=== PATIENT | male | born 1940 | race Two or more races ===

== ENCOUNTER 2024-04-09 13:04 | Emergency (ER) | payer OTHER, MEDICAID ==
[~2024-04-09] VITALS: Ht 167.6 cm; Wt 54.7 kg
[2024-04-09] MEDS: ALBUTEROL SULF 2.5 MG/0.5ML(0.5%) NEB SOLN NEB ONE (13:31)
[2024-04-09] MEDS: IPRATROPIUM BROM 0.5 MG/2.5ML INH SOL NEB ONE (13:32)
[2024-04-09 14:00] LABS: Basophils # (auto) 0 10 ^3/uL (0-0.2); Basophils % (auto) 0.8 % (0.0-2.0); Eosinophils # (auto) 0.6 10 ^3/uL (0-0.8); Eosinophils % (auto) 9.2 % (0.0-7.0); Hematocrit 42.7 % (41.0-53.0); Hemoglobin 14.3 g/dL (13.5-17.5); Lymphocytes # (auto) 2.9 10 ^3/uL (0.4-5.4); Lymphocytes % (auto) 46.9 % (10.0-50.0); Mean Corpuscular Hemoglobin 30.1 pg (28.0-32.0); Mean Corpuscular Hgb Conc. 33.4 g/dL (32.0-36.0); Mean Corpuscular Volume 90.1 fL (80.0-100.0); Monocytes # (auto) 0.6 10 ^3/uL (0-1.3); Monocytes % (auto) 9.5 % (0.0-12.0); Neutrophils # (auto) 2.1 10 ^3/uL (1.6-8.6); Neutrophils % (auto) 33.6 % (37.0-80.0); Red Blood Cells 4.74 10^6/uL (4.5-5.90); Red Cell Distribution Width 14.9 % (11.8-14.3); White Blood Cell 6.3 10^3/uL (4.4-10.8)
[2024-04-09] MEDS ORDERED: ALBU108A5 IN (14:11)
[2024-04-09 14:14] VITALS: PULSE 74; RESP 20; O2SAT 93
[2024-04-09 14:21] LABS: Alanine Aminotransferase 61 U/L (7-40); Albumin 4.1 g/dL (3.2-4.8); Alkaline Phosphatase 882 U/L (46-116); Anion Gap 7 (5-15); Aspartate Aminotransferase 102 U/L (13-40); BUN/Creatinine Ratio 20.9 (10.0-20.0); Bilirubin, Total 0.6 mg/dL (0.2-1.0); Blood Urea Nitrogen 18 mg/dL (9-23); Calcium 9.6 mg/dL (8.7-10.4); Carbon Dioxide 27 mmol/L (20-30); Chloride 103 mmol/L (98-107); Glucose 83 mg/dL (74-106); Potassium 4.1 mmol/L (3.5-5.1); Sodium 137 mmol/L (136-145)
[2024-04-09 15:53] VITALS: TEMP 98.4
[2024-04-09 19:00] VITALS: BP 109/61; PULSE 74; RESP 20; O2SAT 95
== END 2024-04-09 20:12 | disposition left against medical advice (07) ==
LOC: ER 13:04
DX: R06.02 Shortness of breath (principal); R07.89 Other chest pain; I10 Essential (primary) hypertension; E78.5 Hyperlipidemia, unspecified; E11.9 Type 2 diabetes mellitus without complications; Z98.890 Other specified postprocedural states; Z87.891 Personal history of nicotine dependence; Z79.899 Other long term (current) drug therapy
CPT/HCPCS: 36415; 71045; 80053; 83880; 84484; 85025; 93005; 94640; 99285; J7644

== ENCOUNTER 2025-10-02 11:47 | Inpatient (IN) | payer OTHER, MEDICAID ==
[~2025-10-02] VITALS: Ht 157.5 cm; Wt 63.2 kg
[~2025-10-02 11:47] MED LIST: ALBU108A5 IN
--- NOTE | 2025-10-02 12:41 | ED.PDOC ---
SOB-HPI HPI Comments 84 y.o male presents to the ED for a chief complaint of SOB that started 3 days ago. Patient reports SOB worsens when laying flat and has no alleviating factors. He presents today concerned d/t hx of CABG with PTCA x 3 one year ago. He is living with daughter at the moment who is taking care of him s/p procedure. He denies any chest pain, fever, chills, nausea, vomiting, diarrhea, recent illness exposure. Chief Complaint: Shortness of Breath Time Seen by MD: 12:19 Primary Care Provider: BHARGAV Reviewed notes: Nurses Notes, Medications, Allergies Information Source: Patient Mode of Arrival: Ambulatory Severity: Moderate Timing: Days (3) Duration: Since onset Context: At Rest History of: Other Modifying Factors: Nothing; Laying flat Associated Signs and Symptoms: None Past Medical History PAST MEDICAL HISTORY: DM, High Lipids, HTN Surgical History: CABG Family History Family History: Reviewed,noncontributory to illness, Unknown Social History Smoker: Non-Smoker, Quit Greater Than 1 Year Alcohol: Occasionally Drugs: Denies Drug Use Lives In: Home Constitutional: denies: chills, diaphoresis, fatigue, fever, malaise, sweats, weakness, others EENTM: denies: blurred vision, double vision, ear bleeding, ear discharge, ear drainage, ear pain, ear ringing, eye pain, eye redness, hearing loss, mouth pain, mouth swelling, nasal discharge, nose bleeding, nose congestion, nose pain, photophobia, tearing, throat pain, throat swelling, voice changes, others Respiratory: reports: SOB at rest, shortness of breath, SOB with excertion; denies: cough, hemoptysis, orthopnea, stridor, wheezing, others Cardiovascular: denies: chest pain, dizzy spells, diaphoresis, Dyspnea on exertion, edema, irregular heart beat, left arm pain, lightheadedness, palpitations, PND, syncope, others Gastrointestinal: denies: abdomen distended, abdominal pain, blood streaked bowels, constipated, diarrhea, dysphagia, difficulty swallowing, hematemesis, melena, nausea, poor appetite, poor fluid intake, rectal bleeding, rectal pain, vomiting, others Genitourinary: denies: burning, dysuria, flank pain, frequency, hematuria, incontinence, penile discharge, penile sore, pain, testicle pain, testicle swelling, urgency, others Neurological: denies: dizziness, fainting, headache, left sided numbness, left sided weakness, numbness, paresthesia, pre-existing deficit, right sided numbness, right sided weakness, seizure, speech problems, tingling, tremors, weakness, others Musculoskeletal: denies: back pain, gout, joint pain, joint swelling, muscle pain, muscle stiffness, neck pain, others Integumetry: denies: bruises, change in color, change in hair/nails, dryness, laceration, lesions, lumps, rash, wounds, others Allergic/Immunocompromised: denies: Difficulty Healing, Frequent Infections, Hives, Itching, others Hematologic/Lymphatic: denies: anemia, blood clots, easy bleeding, easy bruising, swollen glands, others Endocrine: denies: excessive hunger, excessive sweating, excessive thirst, excessive urination, flushing, intolerance to cold, intolerance to heat, unexplained weight gain, unexplained weight loss, others Psychiatric: denies: anxiety, bipolar disorder, depression, hopeless, panic disorder, schizophrenia, sleepless, suicidal, others All Other Systems: Reviewed and Negative Physical Exam General Appearance: Moderate Distress HEENT: Normal ENT Inspection, Pharynx Normal, TMs Normal Neck: Full Range of Motion, Non-Tender, Normal, Normal Inspection Respiratory: Chest Non-Tender, Lungs Clear, No Accessory Muscle Use, No Respiratory Distress, Normal Breath Sounds Cardiovascular: No Edema, No JVD, No Murmur, No Gallop, Normal Peripheral Pulses, Regular Rate/Rhythm Breast Exam: Deferred Gastrointestinal: No Organomegaly, Non Tender, No Pulsatile Mass, Normal Bowel Sounds, Soft Genitalia: Deferred Pelvic: Deferred Rectal: Deferred Extremities: No calf tenderness, Normal capillary refill, Normal inspection, Normal range of motion, Non-tender, No pedal edema Musculoskeletal : Apperance: Normal Neurologic: Alert, underwear cutter II-XII nml as Tested, No Motor Deficits, Normal Affect, Normal Mood, No Sensory Deficits Cerebellar Function: Normal Reflexes: Normal Skin: Dry, Normal Color, Warm Peripheral Pulses: 3+ Radial (R), 3+ Radial (L) Lymphatic: No Adenopathy EKG EKG : Pulse Rate (adult): 81 Cardiac Rhythm: NSR Was a procedure done? Was a procedure done?: No Differential Dx Differential Diagnosis: Anxiety, Asthma, Bronchitis, CHF, COPD, Pneumonia, Respiratory Distress, URI X-Ray, Labs, Meds, VS Vital Signs Date Time Temp Pulse Resp B/P (MAP) Pulse Ox O2 Delivery O2 Flow Rate FiO2 10/02/25 12:41 81 10/02/25 11:59 81 10/02/25 11:50 97.3 83 20 169/102 98 97.3 Lab Test 10/02/25 13:57 10/02/25 12:53 10/02/25 12:01 Range/Units Troponin I High Sensitivity Pending 17 </=54 ng/L White Blood Count 4.1 L 4.4-10.8 10^3/uL Red Blood Count 5.04 4.5-5.90 10^6/uL Hemoglobin 15.4 13.5-17.5 g/dL Hematocrit 46.3 41.0-53.0 % Mean Corpuscular Volume 91.9 80.0-100.0 fL Mean Corpuscular Hemoglobin 30.5 28.0-32.0 pg Mean Corpuscular Hemoglobin Concent 33.2 32.0-36.0 g/dL Red Cell Distribution Width 14.3 11.8-14.3 % Platelet Count 181 140-450 10^3/uL Mean Platelet Volume 8.0 6.9-10.8 fL Neutrophils (%) (Auto) 41.8 37.0-80.0 % Lymphocytes (%) (Auto) 43.2 10.0-50.0 % Monocytes (%) (Auto) 5.5 0.0-12.0 % Eosinophils (%) (Auto) 8.7 H 0.0-7.0 % Basophils (%) (Auto) 0.8 0.0-2.0 % Neutrophils # (Auto) 1.7 1.6-8.6 10 ^3/uL Lymphocytes # (Auto) 1.8 0.4-5.4 10 ^3/uL Monocytes # (Auto) 0.2 0-1.3 10 ^3/uL Eosinophils # (Auto) 0.4 0-0.8 10 ^3/uL Basophils # (Auto) 0 0-0.2 10 ^3/uL Nucleated Red Blood Cells 0.8 % Sodium Level 140 136-145 mmol/L Potassium Level 4.4 3.5-5.1 mmol/L Chloride Level 103 98-107 mmol/L Carbon Dioxide Level 29 20-31 mmol/L Anion Gap 8 5-15 Blood Urea Nitrogen 11 9-23 mg/dL Creatinine 1.01 0.700-1.30 mg/dL Glomerular Filtration Rate Calc 74 >90 mL/min BUN/Creatinine Ratio 10.9 10.0-20.0 Serum Glucose 198 H 74-106 mg/dL Calcium Level 9.0 8.7-10.4 mg/dL B-Type Natriuretic Peptide 712.59 0-100 pg/mL POC Glucose 148 H 70-106 mg/dl Patient alert. Complaining of abdominal pain. Vitals stable. Answering questions. History of coronary artery disease. WBC slightly low. Hemoglobin within normal limits. Blood pressure elevated. Was given clonidine. BNP elevated. Was given Lasix. Continue monitoring. Time of 1ST Reevaluation: 12:37 Reevaluation 1ST: Unchanged Patient Education/Counseling: Diagnosis, Treatment, Prognosis Family Education/Counseling: No Family Present SEPSIS Sepsis Screen Date sepsis recognized/suspect: Oct 02, 2025 Time Sepsis recognized/suspect: 1152 Recent Procedure: No On Antibiotic Therapy: No Respiratory Rate >20: No Heart Rate >90: No Temp<36 C (96.8 F) or >38.3 C: No SBP <90 or MAP <65 mmHG: No New Acute Mental Status Change: No Is the patient on CPAP, BIPAP,: No Physician Orders Electrocardigram (10/02/25 12:05) Chest Portable (10/02/25 12:30) Urinalysis (10/02/25 12:30) Troponin-I Hs (10/02/25 13:30) Troponin-I Hs (10/02/25 15:30) Ct Ab Pel Wo Con-No Oral Or Iv (10/02/25 13:23) Vital Signs Date Time Temp Pulse Resp B/P (MAP) Pulse Ox O2 Delivery O2 Flow Rate FiO2 10/02/25 12:41 81 10/02/25 11:59 81 10/02/25 11:50 97.3 83 20 169/102 98 97.3 Laboratory Tests Test 10/02/25 12:53 White Blood Count 4.1 10^3/uL (4.4-10.8) L Departure 1 Departure Time of Disposition: 13:22 Impression: Primary Impression: Congestive heart failure Qualified Codes: I50.43 - Acute on chronic combined systolic (congestive) and diastolic (congestive) heart failure Additional Impressions: Hypertensive urgency Uncontrolled diabetes mellitus Qualified Codes: E13.65 - Other specified diabetes mellitus with hyperglycemia Disposition: ADMITTED INPATIENT Admit to: Med Surg Condition: Guarded Critical Care Note Critical Care Time?: Yes (90 min-critical care time only) Stability Stability form required: No I personally scribed for JARROD HUSSEIN MD ([email or web address]) on 10/02/25 at 12:41. Electronically submitted by Latrice Trevino ([facility]). JARROD HUSSEIN MD Oct 02, 2025 12:41
--- NOTE | 2025-10-02 13:11 | DVH ---
CHEST RADIOGRAPH INDICATION: sob TECHNIQUE: Single frontal view of the chest was obtained COMPARISON: XY CHEST PORTABLE on DOS: 04/09/24 FINDINGS: Lines and Tubes: None Lungs: No focal consolidation. Pleura: No effusion. No pneumothorax. Cardiomediastinal contours: Heart size is within normal limits with [id number] atherosclerotic calcification and uncoiling of the aorta. Midline sternotomy wires surgical clips are noted . Bones: No acute osseous abnormality. IMPRESSION: No acute cardiopulmonary disease.
[2025-10-02 13:16] LABS: Hematocrit 46.3 % (41.0-53.0); Hemoglobin 15.4 g/dL (13.5-17.5); Mean Corpuscular Hemoglobin 30.5 pg (28.0-32.0); Mean Corpuscular Volume 91.9 fL (80.0-100.0); Nucleated Red Blood Cells % 0.8 %
[2025-10-02 13:21] LABS: Chloride 103 mmol/L (98-107); Potassium 4.4 mmol/L (3.5-5.1); Sodium 140 mmol/L (136-145)
[2025-10-02 13:22] LABS: Anion Gap 8 (5-15); Calcium 9.0 mg/dL (8.7-10.4); Carbon Dioxide 29 mmol/L (20-31)
[2025-10-02 13:27] LABS: BUN/Creatinine Ratio 10.9 (10.0-20.0); Blood Urea Nitrogen 11 mg/dL (9-23)
[2025-10-02 13:34] LABS: Glucose 198 mg/dL (74-106)
[2025-10-02] MEDS: FUROSEMIDE 40 MG/4 ML VIAL IV ONE (15:04)
[2025-10-02 15:06] LABS: Urine Protein, UAD 1+ (Negative)
--- NOTE | 2025-10-02 15:30 | DVH ---
CLINICAL HISTORY: colitis TECHNIQUE: CT of the abdomen and pelvis was performed without intravenous contrast. This exam was performed according to our departmental dose optimization program. Up-to-date CT equipment and radiation dose reduction techniques are utilized as appropriate. CTDI: 5.43 DLP: 293.88 WID: COMPARISON: None FINDINGS: Lower Thorax: Linear bibasilar scarring or atelectasis. Small cluster of ground- glass opacities in the right middle lobe on series 3 image 2. Partially imaged median sternotomy wires. Upper limits of normal-sized heart. Partially imaged pacer wires and [place] coronary artery calcifications. Partially imaged mild aortic valve calcification. Moderate calcified plaque in the visualized descending thoracic aorta. Liver and Biliary system: Normal-sized liver. There is a tiny hypodensity in segment 7/8 of the liver on series 2, image 14 not optimally evaluated without contrast. Gallbladder is normal caliber. There is no biliary ductal dilatation. Spleen: Unremarkable. Adrenal Glands and Kidneys: Normal adrenal glands. There is nonspecific bilateral perinephric stranding. There are multiple hypodense exophytic lesions in both kidneys not optimally evaluated without contrast measuring up to 3.6 cm in the right upper pole on series 2, image 23 and 3.9 cm in the left lower pole on series 2, image 38. There is focal scarring in the interpolar region of the right kidney. There is no hydronephrosis or nephrolithiasis. Bilateral renal hilar vascular calcifications. Pancreas and Retroperitoneum: Grossly unremarkable pancreas. No retroperitoneal lymphadenopathy. Aorta and Major Vessels: There is mild ectasia of the aortoiliac vessels containing Moderate to marked calcified plaque. Bowel, Mesentery and Peritoneal space: Normal caliber small and large bowel. Moderate retained stool in the colon. Normal appendix. There is no free intraperitoneal air or loculated fluid collection. Pelvis: There is calcification of the bilateral vas deferens seen in patients with diabetes. There is marked prostatomegaly. Urinary bladder is mildly distended with mild wall thickening. There is no pelvic lymphadenopathy. Abdominal wall and Osseous Structures: Small fat containing bilateral inguinal hernias. Bony demineralization. Grade 1 anterolisthesis L4-L5. Minor lower thoracic and lumbar spondylosis. Moderate degenerative narrowing of the bilateral hips. No destructive osseous lesion. IMPRESSION: 1. No bowel obstruction, fluid collection, or free air. Normal appendix. 2. Moderate retained stool in the colon suggesting constipation. 3. Mild bladder wall thickening which may be related to chronic bladder outlet obstruction in the setting of marked prostatomegaly. Correlate with urinalysis if there is clinical concern for cystitis. 4. Small cluster of ground-glass opacities in the right middle lobe which could be atypical infection. 5. Partially imaged mild aortic valve calcification. 6. Multiple bilateral renal hypodensities not optimally evaluated without contrast though may reflect cysts. This could be further evaluated with nonemergent / outpatient renal ultrasound if clinically indicated. 7. Moderate to marked calcified plaque in the mildly ectatic aortoiliac vessels.
[2025-10-02] MEDS: ASPirin-EC 81 mg tab PO ONE (16:47)
[2025-10-02] MEDS: FUROSEMIDE 40 MG/4 ML VIAL ONE (16:53)
--- NOTE | 2025-10-02 17:23 | DVHHPRES ---
History of Present Illness Resident Creating Document: HELEN CANO History of Present Illness Jordon Moreira is a 84-year-old male patient who presents to the ED with chief complaint of progressive dyspnea from Functional Class I to Functional Class III for the past four days associated with bilateral lower limb swelling. Patient reports recent CABG in February 2024, was given cardioprotective medication which he stopped taking approximately one month ago since he ran out (he is still takes spironolactone, Entresto and insulin). He currently lives with his daughter in [place] who is the caregiver, he does report a daughter does not assistance that much with his health. Patient also reports weak urinary stream for the past year, but he has not been evaluated by urologist. Denies any other associated symptoms including chest pain, palpitation, syncope and fever. Past medical history: Hypertension, dyslipidemia, diabetes insulin dependent, coronary artery disease status post CABG in February 2024, probable congestive heart failure (patient is taking GDM T for HFrEF, but patient denies any heart failure history), rib fractures previous to CABG. Surgical history: CABG 02/2024 Family history: Noncontributory Social history: Lives in [place] with daughter (next of kin). Denies current tobacco, alcohol and other drug abuse. Patient is a Spiritism, he denies any blood product administration. Allergies: Denies Home medication: Spironolactone 25 mg p.o. daily, Entresto one tablet p.o. b.i.d., amlodipine 5 mg p.o. daily, aspirin 81 mg p.o. daily, mononitrate isosorbide 30 mg p.o. daily, atorvastatin 40 mg p.o. daily, Patient seen and examined at bedside. Currently has no new complaints. Patient will be admitted for further evaluation. Past Medical History Per HPI Past Surgical History Per HPI Family History Per HPI Past Social History Per HPI Review of Systems Review of Systems Per HPI Allergies: Coded Allergies: No Known Drug Allergy (Verified Allergy, Unknown, 04/09/24) Exam Vital Signs Vital Signs Date Time Temp Pulse Resp B/P (MAP) Pulse Ox O2 Delivery O2 Flow Rate FiO2 10/02/25 15:04 156/95 10/02/25 14:54 97.9 73 16 98 97.9 Exam Patient lying in bed, in no acute distress General: Lucid, afebrile, mucosae are moist Cardiovascular: Normal S1 and S2. No murmurs, gallops or rubs Respiratory: Normal ventilation mechanics. Bibasilar crackles predominantly on right base, rest of lung auscultation is clear Abdomen: Soft, nontender, no organomegaly, normal bowel sounds MSK/skin: Mobilizes 4 limbs. Skin is dry and warm. Bilateral infrapatellar pitting edema, right greater than left. Neurological: Oriented in 3 spheres. No motor no sensitive deficits. Pupils are isocoric and reactive Labs/Xrays Labs Test 10/02/25 15:51 10/02/25 13:57 10/02/25 12:53 10/02/25 12:01 Range/Units Troponin I High Sensitivity 20 </=54 ng/L Urine Color Yellow Yellow Urine Clarity Clear Clear Urine pH 6.0 5.0-9.0 Urine Specific [place] 1.017 1.001-1.035 Urine Protein 1+ H Negative Urine Ketones Negative Negative Urine Blood Negative Negative /uL Urine Nitrite Negative Negative Urine Bilirubin Negative Negative Urine Urobilinogen 2 H Negative mg/dL Urine Leukocyte Esterase Negative Negative /uL Urine RBC 3 0 - 3 /hpf Urine Microscopic WBC 3 0-3 /HPF Urine Squamous Epithelial Cells Few <5 /hpf Urine Bacteria None seen None Seen /hpf Urine Glucose Trace Normal mg/dL White Blood Count 4.1 L 4.4-10.8 10^3/uL Red Blood Count 5.04 4.5-5.90 10^6/uL Hemoglobin 15.4 13.5-17.5 g/dL Hematocrit 46.3 41.0-53.0 % Mean Corpuscular Volume 91.9 80.0-100.0 fL Mean Corpuscular Hemoglobin 30.5 28.0-32.0 pg Mean Corpuscular Hemoglobin Concent 33.2 32.0-36.0 g/dL Red Cell Distribution Width 14.3 11.8-14.3 % Platelet Count 181 140-450 10^3/uL Mean Platelet Volume 8.0 6.9-10.8 fL Neutrophils (%) (Auto) 41.8 37.0-80.0 % Lymphocytes (%) (Auto) 43.2 10.0-50.0 % Monocytes (%) (Auto) 5.5 0.0-12.0 % Eosinophils (%) (Auto) 8.7 H 0.0-7.0 % Basophils (%) (Auto) 0.8 0.0-2.0 % Neutrophils # (Auto) 1.7 1.6-8.6 10 ^3/uL Lymphocytes # (Auto) 1.8 0.4-5.4 10 ^3/uL Monocytes # (Auto) 0.2 0-1.3 10 ^3/uL Eosinophils # (Auto) 0.4 0-0.8 10 ^3/uL Basophils # (Auto) 0 0-0.2 10 ^3/uL Nucleated Red Blood Cells 0.8 % Sodium Level 140 136-145 mmol/L Potassium Level 4.4 3.5-5.1 mmol/L Chloride Level 103 98-107 mmol/L Carbon Dioxide Level 29 20-31 mmol/L Anion Gap 8 5-15 Blood Urea Nitrogen 11 9-23 mg/dL Creatinine 1.01 0.700-1.30 mg/dL Glomerular Filtration Rate Calc 74 >90 mL/min BUN/Creatinine Ratio 10.9 10.0-20.0 Serum Glucose 198 H 74-106 mg/dL Calcium Level 9.0 8.7-10.4 mg/dL B-Type Natriuretic Peptide 712.59 0-100 pg/mL POC Glucose 148 H 70-106 mg/dl SEPSIS Sepsis Screen Date sepsis recognized/suspect: Oct 02, 2025 Time Sepsis recognized/suspect: 1152 Recent Procedure: No On Antibiotic Therapy: No Respiratory Rate >20: No Heart Rate >90: No Temp<36 C (96.8 F) or >38.3 C: No SBP <90 or MAP <65 mmHG: No New Acute Mental Status Change: No Is the patient on CPAP, BIPAP,: No Physician Orders Electrocardigram (10/02/25 12:05) Chest Portable (10/02/25 12:30) Ct Ab Pel Wo Con-No Oral Or Iv (10/02/25 13:23) Admit (10/02/25 17:16) Code Status (10/02/25 17:16) Acetaminophen Tablet (Tylenol Tablet) (10/02/25 17:30) Ondansetron Hcl (Zofran) (10/02/25 17:30) Complete Blood Count (10/03/25 04:00) Comprehensive Metabolic Panel (10/03/25 04:00) Cardiac Diet-2gna,Lofat,Lochol (10/02/25 Dinner) Echo 2d Mode Cardiac Dop (10/02/25 17:16) Morphine Sulfate Injection (10/02/25 17:30) Lovenox 40mg (10/03/25 10:00) Oxygen By Nasal Cannula (10/02/25 17:16) Stat Ekg For Chest Pain (10/02/25 17:16) Notify Md Of Changes From Base (10/02/25 17:16) Solids Control Technician For 24 Hours (10/02/25 17:16) Emergency Dysrhythmia Protocol (10/02/25 17:16) Rhythm Strips Once Every Shift (10/02/25 17:16) Vitamin D, 25-Hydroxy (10/02/25 17:16) Vitamin B12 (10/02/25 17:16) Thyroid Stimulating Hormone (10/02/25 17:16) Phosphorus (10/02/25 17:16) Magnesium (10/02/25 17:16) Lipid Panel (10/02/25 17:16) Lactic Acid W/ Reflex Order (10/02/25 17:16) Hemoglobin A1c (10/02/25 17:16) Drug Screen (10/02/25 17:16) PTPTT (10/02/25 17:16) Hepatic Panel (10/02/25 17:16) Covid19 Antigen Cecelia (10/02/25 ) Rapid Influenza A&B (10/02/25 17:16) Urine Bacterial Culture (10/02/25 17:16) Kidney (10/02/25 17:16) Ipratropium Medneb (Atrovent Medneb) (10/02/25 18:00) Levalbuterol Hcl (Xopenex Medneb) (10/02/25 18:00) Aspirin Enteric Coated Tablet (Ecotrin E (10/03/25 10:00) Aspirin Enteric Coated Tablet (Ecotrin E (10/02/25 17:30) Atorvastatin (Lipitor) (10/02/25 22:00) Furosemide Injection (Lasix Injection) (10/03/25 10:00) Vital Signs Date Time Temp Pulse Resp B/P (MAP) Pulse Ox O2 Delivery O2 Flow Rate FiO2 10/02/25 15:04 156/95 12/27/25 14:54 97.9 73 16 156/95 (115) 98 97.9 10/02/25 12:41 81 10/02/25 11:59 81 10/02/25 11:50 97.3 83 20 169/102 98 97.3 Laboratory Tests Test 10/02/25 12:53 White Blood Count 4.1 10^3/uL (4.4-10.8) L Medications Medications Dose Ordered Sig/Alex Route Start Time Stop Time Status Last Admin Dose Admin Furosemide 40 mg ONCE ONCE IV 10/02/25 14:30 10/02/25 14:31 DC 10/02/25 15:04 40 MG Assessment/Plan Assessment/Plan ASSESSMENT Acute respiratory failure Acute on chronic congestive heart failure (unknown LVEF, pending echocardiogram) Questionable atypical pneumonia Rule out DVT/PE Probable BPH Coronary artery disease status post CABG in 02/2024 Hypertension Dyslipidemia Diabetes insulin requiring, uncontrolled (hemoglobin A1c) History of rib fractures Mandaeism-refuses blood product administration Noncompliance PLAN Patient admitted to telemetry Currently on IV furosemide 40 mg daily. BNP above 7000. Will persists positive since patient is on Entresto. Ordered echocardiogram and EKG. Awaiting initiation of GDM T once obtaining echocardiogram. Completed abdomen and pelvis CT which showed no bowel obstruction, constipation, mild bladder wall thickening and prostatomegaly, probable atypical infection in the lung, aortic calcification, questionable renal cyst Ordered kidney ultrasound Initiated tamsulosin Ordered COVID and influenza swab due to questionable atypical pneumonia On insulin sliding scale. Have discussed importance of compliance to medication. Goals of care discussed with patient for over 18 minutes: Full code status. Patient refuses administration of blood products. Discussed plan with Dr. Harp, patient and nurses: Patient admitted to telemetry. Currently on IV diuretics, we will optimize GDM T once obtaining echocardiogram. Ordered swabs to rule out atypical pneumonia. Patient has poor prognosis. Plan discussed with: Patient, Other (Nurses) My Orders Orders - HELEN CANO RESIDENT Procedure Category Date Status Time Admit ADMIT 10/02/25 Transmitted 17:16 Code Status CODE 10/02/25 Transmitted 17:16 Acetaminophen Tablet PHA 10/02/25 Transmitted (Tylenol Tablet) 17:30 Ondansetron Hcl PHA 10/02/25 Transmitted (Zofran) 17:30 Complete Blood Count LAB 10/03/25 Verified 04:00 Comprehensive LAB 10/03/25 Verified Metabolic Panel 04:00 Cardiac DIET 10/02/25 Transmitted Diet-2gna,Lofat,Lochol Dinner Echo 2d Mode Cardiac US 10/02/25 Transmitted DOP 17:16 Morphine Sulfate PHA 10/02/25 Transmitted Injection 17:30 Lovenox 40mg PHA 10/03/25 Transmitted 10:00 Oxygen By Nasal RT 10/02/25 Transmitted Cannula 17:16 Stat Ekg For Chest [facility] 10/02/25 Transmitted Pain 17:16 Notify Of Changes [facility] 10/02/25 Transmitted From Base 17:16 Solids Control Technician For [facility] 10/02/25 Transmitted 24 Hours 17:16 Emergency Dysrhythmia [facility] 10/02/25 Transmitted Protocol 17:16 Rhythm Strips Once [facility] 10/02/25 Transmitted Every Shift 17:16 Vitamin D, 25-Hydroxy LAB 10/02/25 Transmitted 17:16 Vitamin B12 LAB 10/02/25 Transmitted 17:16 Thyroid Stimulating LAB 10/02/25 Transmitted Hormone 17:16 Phosphorus LAB 10/02/25 Transmitted 17:16 Magnesium LAB 10/02/25 Transmitted 17:16 Lipid Panel LAB 10/02/25 Transmitted 17:16 Lactic Acid W/ Reflex LAB 10/02/25 Transmitted Order 17:16 Hemoglobin A1c LAB 10/02/25 Transmitted 17:16 Drug Screen LAB 10/02/25 Transmitted 17:16 PTPTT LAB 10/02/25 Transmitted 17:16 Hepatic Panel LAB 10/02/25 Transmitted 17:16 Covid19 Antigen Cecelia LAB 10/02/25 Transmitted Rapid Influenza A&B LAB 10/02/25 Transmitted 17:16 Urine Bacterial TAMIR 10/02/25 Transmitted Culture 17:16 Kidney US 10/02/25 Transmitted 17:16 Ipratropium Medneb PHA 10/02/25 Transmitted (Atrovent Medneb) 18:00 Levalbuterol Hcl PHA 10/02/25 Transmitted (Xopenex Medneb) 18:00 Aspirin Enteric PHA 10/03/25 Transmitted Coated Tablet 10:00 Aspirin Enteric PHA 10/02/25 Transmitted Coated Tablet 17:30 Atorvastatin (Lipitor) PHA 10/02/25 Transmitted 22:00 Furosemide Injection PHA 10/03/25 Transmitted (Lasix Injection) 10:00 Visit Coding STANDARD RES Billing Provider: SHAWN HARP MD Date of Service if different f: Oct 02, 2025 Common Visit Codes: [id number] INP/OBS CARE (HIGH) Secondary Visit Codes: [id number] CARE PLAN 30 MINUTES HELEN CANO RESIDENT Oct 02, 2025 17:23
[2025-10-02] MEDS ORDERED: ONDANSETRON HCL 4 MG/2 ML VIAL IV PRN (17:30)
[2025-10-02] MEDS ORDERED: ACETAMINOPHEN 325 MG TAB PO PRN (17:30)
[2025-10-02] MEDS ORDERED: MORPHINE SULFATE INJ 2 MG/ml SYRG IV PRN (17:30)
[2025-10-02 17:33] VITALS: BP 156/95; PULSE 74; RESP 18; TEMP 97.9; O2SAT 98
[2025-10-02 17:48] LABS: Magnesium 2.0 mg/dL (1.6-2.6); Triglycerides 97.0 mg/dL (< 150)
[2025-10-02 17:50] LABS: Cholesterol 197.0 mg/dL (< 200)
[2025-10-02 17:52] LABS: HDL Cholesterol 74.0 mg/dL (40-59)
[2025-10-02 18:00] LABS: INR 1.01 (0.9-1.15); Partial Thromboplastin Time 31.2 SEC (24.5-34.5); Prothrombin Time 10.7 sec (9.3-11.8)
[2025-10-02] MEDS: LEVALBUTEROL HCL 1.25 MG/3 ML NEB NEB SCH (18:00)
[2025-10-02] MEDS: IPRATROPIUM BROM 0.5 MG/2.5ML INH SOL NEB SCH (18:00)
[2025-10-02 18:34] LABS: Alanine Aminotransferase 31.0 U/L (7-40); Albumin 4.1 g/dL (3.2-4.8); Alkaline Phosphatase 176.0 U/L (46-116); Bilirubin, Direct 0.2 mg/dL (<0.3); Bilirubin, Total 0.8 mg/dL (0.2-1.0); Total Protein 7.5 g/dL (5.7-8.2)
--- NOTE | 2025-10-02 18:39 | DVH ---
INDICATION: Kidney cysts TECHNIQUE: Multiple real-time sonographic images of the kidneys and bladder were obtained. COMPARISON: None FINDINGS: The right kidney measures 9.3 cm in length, which is normal in size. There is normal echogenicity of the right kidney. There is a small area of focal scarring in the interpolar region. No hydronephrosis. There are multiple anechoic cysts, the largest of which measures 3.5 cm at the superior pole. The left kidney measures 10.5 cm in length, which is normal in size. There is normal echogenicity of the left kidney. No hydronephrosis. There are multiple anechoic cysts, the largest of which measures 4.1 cm at the inferior pole. No intraluminal mass is seen in the bladder. At the time of the examination, the urinary bladder measures approximately 232 cc. There is no bladder wall thickening. The prostate is significantly enlarged (estimated 92 cc) and protrudes into the urinary bladder. IMPRESSION: Few simple appearing renal cysts bilaterally. No hydronephrosis of either kidney. The prostate is significantly enlarged (estimated 92 cc) and protrudes into the urinary bladder.
[2025-10-02] MEDS ORDERED: DEXTROSE (50%) 50ML SYRG IV PRN (19:15)
[2025-10-02 19:19] LABS: COVID19 ANTIGEN SOFIA FIA NEGATIVE (NEGATIVE)
[2025-10-02 19:48] LABS: Amphetamine Screen, Urine Neg (NEGATIVE); Barbiturate Scree,Urine Neg (NEGATIVE); Benzodiazephine Screen, Urine Neg (NEGATIVE); Cannabinoid Screen, Urine Neg (NEGATIVE); Cocaine Screen, Urine Neg (NEGATIVE); Opiate Scree,Urine Neg (NEGATIVE); Phencyclidine Screen, Urine Neg (NEGATIVE)
[2025-10-02] MEDS: InsuLIN REG 1unit/0.01ml Soln (100units/ml) SC SCH (20:00)
[2025-10-02] MEDS: ACCU-CHEK COMFORT CURVE STRIP VI SCH (20:00)
--- NOTE | 2025-10-02 21:05 | DVH ---
BILATERAL LOWER EXTREMITY VENOUS DUPLEX REASON FOR EXAMINATION: Bilateral lower limb swelling COMPARISON: None TECHNIQUE: Using real-time freeze-frame technique with a high-frequency transducer, multiple longitudinal and transverse sections were obtained. Simultaneous color flow and spectral Doppler imaging was performed. The deep veins from the popliteal fossa to the groin were evaluated. FINDINGS: There is good visualization of the deep venous system. There is wall adherent, echogenic, chronic appearing, nonocclusive thrombus in the distal portion of the femoral vein bilaterally. Otherwise normal venous compressibility and augmentation is seen in the deep veins of both lower extremities. Color flow Doppler imaging is unremarkable. IMPRESSION: Nonocclusive, chronic appearing, wall adherent thrombus in the distal portion of the femoral vein bilaterally. No acute femoropopliteal deep venous thrombus is identified. Chronic DVT Critical Result: DVT The retention specialist conveyed the findings to HELEN Burk on 10/02/2025 at the time of completion of the study. #CRITICAL#
[2025-10-02] MEDS: SACUBITRIL-VALSARTAN 24mg/26mg TAB PO SCH (22:00)
[2025-10-02] MEDS: ATORVASTATIN 20 MG TAB PO SCH (23:53)
[2025-10-02] MEDS: IOHEXOL 350 MG/ML 100ML IJ ONE (23:57)
[2025-10-02] MEDS: ENOXAPARIN SOD 100 MG/1 ML SYRINGE SC SCH (23:57)
[2025-10-03] VITALS (13 sets, daily range): BP systolic 129–183; BP diastolic 81–104; PULSE 52–97; RESP 14–21; TEMP 97.7–98.6; O2SAT 95–100
--- NOTE | 2025-10-03 01:43 | DVH ---
EXAM: CT CT ANGIO CHEST CONTRAST History: Rule out PE Comparison Study: XY CHEST PORTABLE on DOS: 10/02/25, XY CHEST PORTABLE on DOS: 04/09/24 TECHNIQUE: A digital passenger locomotive engineer image was obtained. During the uneventful, intravenous administration of contrast material, multislice data acquisition was obtained through the chest. 3-D postprocessing is performed by technologist including MIP imaging Radiation Dose : CTDI vol 8.6 mGy, DLP 336.3 mGy*cm. FINDINGS: Evaluation is degraded by respiratory motion. Lungs: There is mild scattered atelectasis / scarring. Pleura: Unremarkable Heart/Great vessels: There is cardiomegaly. There is no pericardial effusion. There are coronary artery calcifications versus stents. There are moderate atherosclerotic calcifications about The aorta. There is no CT evidence of acute pulmonary embolism. Mediastinum: Unremarkable. Soft tissues/Bones: Median sternotomy changes are noted. Upper abdomen: Bilateral renal cysts. IMPRESSION: 1. No CT evidence of pulmonary embolism or acute intrathoracic abnormality. 2. Incidental findings as detailed.
[2025-10-03] MEDS: SACUBITRIL-VALSARTAN 24mg/26mg TAB PO SCH ×2 (01:57→09:30)
[2025-10-03] MEDS ORDERED: SPIR25TA8 PO (02:58)
[2025-10-03] MEDS ORDERED: ASPI-543 PO (02:58)
[2025-10-03] MEDS ORDERED: ATOR40TA52 PO (02:58)
[2025-10-03] MEDS ORDERED: SACU1TAB PO (02:58)
[2025-10-03] MEDS ORDERED: AMLO1TAB22 PO (02:58)
[2025-10-03] MEDS ORDERED: ISO60SRT PO (02:58)
[2025-10-03] MEDS ORDERED: INSLANTI SC (03:01)
[2025-10-03 07:16] LABS: Hematocrit 42.3 % (41.0-53.0); Hemoglobin 14.3 g/dL (13.5-17.5); Mean Corpuscular Hemoglobin 30.7 pg (28.0-32.0); Mean Corpuscular Volume 90.9 fL (80.0-100.0); Nucleated Red Blood Cells % 0.2 %
[2025-10-03] MEDS: LEVALBUTEROL HCL 1.25 MG/3 ML NEB NEB SCH (07:16)
[2025-10-03 07:31] LABS: Alanine Aminotransferase 25 U/L (7-40); Albumin 3.6 g/dL (3.2-4.8); Anion Gap 9 (5-15); BUN/Creatinine Ratio 14.1 (10.0-20.0); Blood Urea Nitrogen 13 mg/dL (9-23); Calcium 8.8 mg/dL (8.7-10.4); Carbon Dioxide 26 mmol/L (20-31); Chloride 106 mmol/L (98-107); Glucose 74 mg/dL (74-106); Potassium 3.7 mmol/L (3.5-5.1); Sodium 141 mmol/L (136-145); Total Protein 6.6 g/dL (5.7-8.2)
[2025-10-03 07:32] LABS: Bilirubin, Total 0.8 mg/dL (0.2-1.0)
[2025-10-03 07:40] LABS: Alkaline Phosphatase 143 U/L (46-116)
[2025-10-03] MEDS: ENOXAPARIN SOD 60 MG/0.6 ML SYRINGE SC SCH (09:28)
[2025-10-03] MEDS: FUROSEMIDE 40 MG/4 ML VIAL IV SCH (09:28)
[2025-10-03] MEDS: ASPirin-EC 81 mg tab PO SCH (09:29)
[2025-10-03] MEDS: EMPAGLIFLOZIN 10 MG TAB PO SCH (09:29)
[2025-10-03] MEDS: SPIRONOLACTONE 25 MG TAB PO SCH (09:29)
[2025-10-03] MEDS: ISOSORBIDE MONONITRATE ER 60 MG TAB PO SCH (09:30)
[2025-10-03] MEDS ORDERED: SACUBITRIL-VALSARTAN 24mg/26mg TAB PO SCH (10:00)
[2025-10-03] MEDS ORDERED: ENOXAPARIN SOD 40 MG/0.4 ML SYRINGE SC SCH (10:00)
[2025-10-03] MEDS: InsuLIN REG 1unit/0.01ml Soln (100units/ml) ONE ×2 (11:44→20:29)
--- NOTE | 2025-10-03 16:52 | DVHSR ---
APPROVED REPORT EXAM: LIMITED Two-dimensional and M-mode echocardiogram with Doppler and color Doppler. Blood Pressure: 131/90 mmHg INDICATION CHF Surgery/Intervention CABG: RISK FACTORS Height: 5' 2", Weight: 138 DIMENSIONS LVDd 6.0 (3.8-5.7cm) LA (2D) 4.3 (1.9-4.0cm) Aortic Root 4.2 (2.0-3.7cm) LVDs 5.4 (2.5-4.0cm) LA (MM) (1.9-4.0cm) Aortic Cusp Exc 2.0 (1.5-2.0cm) EF (%) 19.0 (55-70%) Rt. Atrium 3.3 (1.9-4.0cm) Asc. Aorta cm IVSd 1.2 (0.7-1.1cm) RV (D) (1.8-2.4cm) PWd 0.9 (0.7-1.1cm) Mitral Valve Mitral Mitral Stenosis E wave 0.70m/s MV Mean GR. mmHg A wave 0.70m/s MV Peak GR. mmHg E/A ratio 1.0 2D MVA cm2 Aortic Valve Aortic Valve Aortic Stenosis V1 0.50m/s AO Mean GR. 3mmHg V2 1.20m/s AO Peak GR. 6mmHg LVOT Diameter 2.3 (1.8-2.4cm) Doppler KEANU 1.73cm2 Other Information Quality : Technically Limited Rhythm : Technically limited study due to body habitus. Conclusion SEVERE SYSTOLIC LV DYSFUNCTION SEVERE GLOBAL LV HYPOKINESIS LV EF IS ONLY 15% MODERATELY DILATED LA NORMAL VALVES NO EFFUSION
[2025-10-03] MEDS: IPRATROPIUM BROM 0.5 MG/2.5ML INH SOL ONE (18:04)
[2025-10-03] MEDS: LEVALBUTEROL HCL 1.25 MG/3 ML NEB ONE (18:04)
[2025-10-03] MEDS: TAMSULOSIN HYDROCHLORIDE 0.4 MG CAP PO SCH (18:26)
--- NOTE | 2025-10-03 18:43 | DVHPN2 ---
Subjective Patient remains clinically stable. No complaints of chest pain or discomfort. Changes from previous H/P or p: No Changes Objective Vitals Vital Signs Date Time Temp Pulse Resp B/P (MAP) Pulse Ox O2 Delivery O2 Flow Rate FiO2 10/03/25 18:19 55 16 98 10/03/25 18:11 Room Air* 0 21 10/03/25 13:00 98.2 129/82 (98) 98.2 Intake/Output Intake and Output 10/03/25 07:00 Intake Total 200 ml Balance 200 ml Intake Oral 200 ml # Voids 1 Exam Alert awake oriented x3. Comfortable in bed without distress. HEENT neck supple no JVD. Heart regular rate and rhythm S1-S2. Lungs fair air movement without rales wheezes. Abdomen soft nontender positive bowel sounds. Extremities improved edema. Positive distal pedal pulses. Medications Current Medications Medications Dose Ordered Sig/Alex Route Start Time Stop Time Status Last Admin Dose Admin Acetaminophen 325 mg Q4HP PRN PO 10/02/25 17:30 Ondansetron HCl 4 mg Q4HP PRN IV 10/02/25 17:30 Morphine Sulfate 2 mg Q4HPRN PRN IV 10/02/25 17:30 Ipratropium [place] 0.5 mg Q6HWA NEB 10/02/25 18:00 10/03/25 18:11 0.5 MG Aspirin 81 mg DAILY PO 10/03/25 10:00 10/03/25 09:29 81 MG Atorvastatin Calcium 40 mg HS PO 10/02/25 22:00 10/02/25 23:53 40 MG Furosemide 40 mg DAILY IV 10/03/25 10:00 10/03/25 09:28 40 MG Spironolactone 25 mg DAILY PO 10/03/25 10:00 10/03/25 09:29 25 MG Empaglifozin 10 mg DAILY PO 10/03/25 10:00 10/03/25 09:29 10 MG Isosorbide Mononitrate 30 mg DAILY PO 10/03/25 10:00 10/03/25 09:30 30 MG Tamsulosin HCl 0.4 mg QPM PO 10/03/25 18:00 10/03/25 18:26 0.4 MG Diagnostic Test (Pha) 1 strip IQ4HR 10/02/25 20:00 10/03/25 16:17 1 STRIP Insulin Human Regular IQ4HR SC 10/02/25 20:00 10/03/25 11:37 4 UNITS Dextrose 50 ml UD PRN IV 10/02/25 19:15 Levalbuterol HCl 0.625 mg Q6HWA NEB 10/03/25 06:00 10/03/25 18:11 0.625 MG Sacubitril/ Valsartan 1 tab BID PO 10/03/25 10:00 10/03/25 09:30 1 TAB Enoxaparin Sodium 60 mg Q12HR SC 10/03/25 10:00 10/03/25 09:28 60 MG Laboratory Results Laboratory Tests 10/03/25 06:15 Chemistry Test 10/03/25 06:15 Albumin 3.6 g/dL (3.2-4.8) Calcium Level 8.8 mg/dL (8.7-10.4) Total Protein 6.6 g/dL (5.7-8.2) LFT Test 10/03/25 06:15 Alanine Aminotransferase (ALT) 25 U/L (7-40) Alkaline Phosphatase 143 U/L (46-116) H Aspartate Amino Transferase (AST) 29 U/L (13-40) Total Bilirubin 0.8 mg/dL (0.2-1.0) Urinalysis Test 10/02/25 13:57 Urine Color Yellow (Yellow) Urine Clarity Clear (Clear) Urine pH 6.0 (5.0-9.0) Urine Specific [place] 1.017 (1.001-1.035) Urine Protein 1+ (Negative) H Urine Ketones Negative (Negative) Urine Blood Negative /uL (Negative) Urine Nitrite Negative (Negative) Urine Bilirubin Negative (Negative) Urine Urobilinogen 2 mg/dL (Negative) H Urine Leukocyte Esterase Negative /uL (Negative) Urine RBC 3 /hpf (0 - 3) Urine Microscopic WBC 3 /HPF (0-3) Urine Squamous Epithelial Cells Few /hpf (<5) Urine Bacteria None seen /hpf (None Seen) Urine Glucose Trace mg/dL (Normal) Microbiology Microbiology Date/Time Source Procedure Growth Status 10/02/25 18:45 Voided Urine Urine Culture - Preliminary No growth Resulted Assessment/Plan Assessment/Plan Clinically stable. I will transition Lovenox to oral Eliquis for his chronic DVT in the legs. EF is 15% on echo. Discussed with the patient regarding his heart failure and end-stage cardiomyopathy. Continue current cardiac medications. Continue rest of supportive care and treatment. Further clinical management per clinical course. Discussed with the patient and nurse regarding care plan at bedside Plan discussed with: Patient, Other My Orders Orders - STACEY BLANCO MD Procedure Category Date Status Time Cardiac DIET 10/03/25 Transmitted Diet-2gna,Lofat,Lochol Lunch Problem List: (1) Shortness of breath (2) Chest pain (3) Acute abdominal pain (4) Congestive heart failure (5) Uncontrolled diabetes mellitus (6) Hypertensive urgency Date of Service: Oct 03, 2025 Billing Provider: STACEY BLANCO MD Common Visit Codes: [id number] INP/OBS CARE(HIGH) STACEY BLANCO MD Oct 03, 2025 18:43
[2025-10-03] MEDS: APIXABAN 5 MG TAB PO SCH (21:15)
--- NOTE | 2025-10-03 23:36 | ECG ---
[facility] Test Date: 2025-10-03 Test Time: 23:33:48 Pat Name: CHRISTOPHER RIVERA Department: Respiratoy Room: 0216T Gender: M Wage Conciliator: GARCIA : 1940 Requested By: ANCA CRUZ Order Number: [id number] Reading MD: Oj Tompkins Measurements Intervals [place] Rate: 73 P: 58 SC: 168 QRS: -54 QRSD: 119 T: 138 QT: 406 QTc: 448 Interpretive Statements Sinus rhythm Paired ventricular premature complexes Aberrant complex Nonspecific IVCD with LAD LVH with secondary repolarization abnormality Electronically Signed On 10-07-2025 16:06:23 PST by Oj Tompkins Please click the below link to view image of tracing.
--- NOTE | 2025-10-03 23:49 | RESUS ---
CODE ASSIST ASSESSSMENT Initial Information Code Assist Date: Oct 03, 2025 Code Assist Time: 23:25 Location of Arrest: Central Room # 216B Provider Name NANCY [employer]UST[employer] CUTTER Time Notified: 23:25 Time PMD returned call: 23:30 Crash Cart Opened and Supplies: No Situation Staff concerned/worried, speci: Change LOC, Other (FALL) Situation comment: PT WAS FOUND BY STAFF ON THE BATHROOM FLOOR, LETHARGIC. Background Background: 84 y.o male presents to the ED for a chief complaint of SOB that started 3 days ago. Patient reports SOB worsens when laying flat and has no alleviating factors. He presents today concerned d/t hx of CABG with PTCA x 3 one year ago. He is living with daughter at the moment who is taking care of him s/p procedure. Assessment Temperature (Fahrenheit): 98.6 Blood Pressure Systolic: 113 Blood Pressure Diastolic: 74 Respiratory Rate: 18 O2 Sat by Pulse Oximetry: 99 Assessment comment: PT LETHARGIC AWAKENS TO STERNAL RUB, NOT ANSWERING TO QUESTIONS JUST STATES I HAVE TO GO TO THE BATHROOM. BS 104 Recommendations/Interventions Procedures: Accu check Other Interventions CT HEAD Outcome Outcome: Other (MOVED TO SITTER ROOM) Team Members Team Members MIGUEL CRUZ DNP, RN HS, RAMAN RN, SONIA RN, RADHA RN KATE RN, BENNIE RN, MIGUEL HARRELL Oct 03, 2025 23:49
--- NOTE | 2025-10-04 00:15 | DVH ---
CT HEAD WITHOUT CONTRAST HISTORY: Fall. COMPARISON: None available. CONTRAST: Study was performed without contrast. TECHNIQUE: Axial images from the skull base to the vertex with coronal and sagittal reformatted images. This exam was performed according to our departmental dose optimization program. Up-to-date CT equipment and radiation dose reduction techniques are utilized as appropriate. DOSE: CTDIvol: 63.4 mGy; DLP: 1016 mGy-cm. FINDINGS: BRAIN PARENCHYMA: No acute hemorrhage, large vascular territory infarct, or mass effect. Confluent and scattered white matter hypodensities, which are nonspecific but likely represents the sequela of chronic microangiopathic change. Mild cerebral volume loss with ex vacuo dilation of the ventricles, wh ich is commensurate for age. VENTRICLES/EXTRA-AXIAL SPACES: No evidence of hydocephalus. No extra-axial collection. Basal cisterns are patent. EXTRACRANIAL STRUCTURES: No acute or suspicious ossues abnormality. Normal soft tissues. Mild polypoid mucosal thickening of the paranasal sinuses. Bilateral mastoid air cells are clear. Orbits are unremarkable. Mild calcific atherosclerosis of the carotid siphons and the left vertebral artery V4 segment. IMPRESSION: No acute intracranial abnormality.
[2025-10-04 01:00] VITALS: BP 125/76; PULSE 86; RESP 18; TEMP 97.4; O2SAT 96
[2025-10-04] MEDS: InsuLIN REG 1unit/0.01ml Soln (100units/ml) ONE ×2 (04:37→12:17)
[2025-10-04] MEDS: IPRATROPIUM BROM 0.5 MG/2.5ML INH SOL ONE ×3 (06:05→17:57)
[2025-10-04] MEDS: LEVALBUTEROL HCL 1.25 MG/3 ML NEB ONE ×3 (06:05→17:58)
[2025-10-04 08:00] VITALS: PULSE 78; PULSE 89; RESP 20; O2SAT 97
[2025-10-04 09:00] VITALS: BP 99/61; PULSE 70; RESP 17; TEMP 97.4; O2SAT 96
[2025-10-04 09:35] LABS: Hematocrit 39.2 % (41.0-53.0); Hemoglobin 13.4 g/dL (13.5-17.5); Mean Corpuscular Hemoglobin 31.0 pg (28.0-32.0); Mean Corpuscular Volume 90.7 fL (80.0-100.0); Nucleated Red Blood Cells % 0.1 %
[2025-10-04 10:00] VITALS: O2SAT 97
[2025-10-04 10:03] LABS: Anion Gap 10 (5-15); Carbon Dioxide 28 mmol/L (20-31); Chloride 101 mmol/L (98-107); Potassium 3.8 mmol/L (3.5-5.1); Sodium 139 mmol/L (136-145)
[2025-10-04 10:04] LABS: Calcium 8.9 mg/dL (8.7-10.4)
--- NOTE | 2025-10-04 10:09 | ECG ---
[facility] Test Date: 2025-10-02 Test Time: 11:59:34 Pat Name: CHRISTOPHER RIVERA Department: Room: 0216T B Gender: M Sales And Marketing Coordinator: CAMILA : 1940 Requested By: JARROD HUSSEIN Order Number: [id number] Reading MD: Oj Tompkins Measurements Intervals [place] Rate: 81 P: 69 MS: 195 QRS: 48 QRSD: 107 T: 237 QT: 383 QTc: 445 Interpretive Statements Sinus rhythm Ventricular premature complex Probable LVH with secondary repol abnrm Electronically Signed On 10-07-2025 17:25:40 PST by Oj Tompkins Please click the below link to view image of tracing.
[2025-10-04 10:10] LABS: BUN/Creatinine Ratio 17.5 (10.0-20.0); Blood Urea Nitrogen 18 mg/dL (9-23)
[2025-10-04 10:12] LABS: Glucose 178 mg/dL (74-106)
[2025-10-04 10:25] LABS: INR 1.02 (0.9-1.15); Partial Thromboplastin Time 33.6 SEC (24.5-34.5); Prothrombin Time 10.8 sec (9.3-11.8)
[2025-10-04 12:20] VITALS: BP 112/77; PULSE 88; RESP 18; TEMP 97.6; O2SAT 96
[2025-10-04] MEDS ORDERED: INSLANTI SC (15:51)
[2025-10-04] MEDS ORDERED: EMPA1TAB PO (15:51)
[2025-10-04] MEDS ORDERED: SPIR25TA PO (15:51)
[2025-10-04] MEDS ORDERED: APIX5TAB PO (15:51)
[2025-10-04] MEDS ORDERED: INSU-567 XX (15:51)
[2025-10-04] MEDS ORDERED: ISO60SRT PO (15:51)
[2025-10-04] MEDS ORDERED: LANC-347 XX (15:51)
[2025-10-04] MEDS ORDERED: ATOR20TA50 PO (15:51)
[2025-10-04] MEDS ORDERED: ASPI-543 PO (15:51)
[2025-10-04] MEDS ORDERED: BLOO1KIT60 XX (15:51)
[2025-10-04] MEDS ORDERED: SACU1TAB PO (15:51)
--- NOTE | 2025-10-04 16:03 | DVHDS2 ---
Discharge Summary Date of Admission Oct 02, 2025 at 17:16 Date of Discharge: Oct 04, 2025 Labs/Diagnostic Data: Laboratory Results Test 10/04/25 12:10 10/04/25 09:19 10/03/25 06:15 10/02/25 18:45 POC Glucose 194 mg/dl (70-106) White Blood Count 4.1 10^3/uL (4.4-10.8) Red Blood Count 4.32 10^6/uL (4.5-5.90) Hemoglobin 13.4 g/dL (13.5-17.5) Hematocrit 39.2 % (41.0-53.0) Mean Corpuscular Volume 90.7 fL (80.0-100.0) Mean Corpuscular Hemoglobin 31.0 pg (28.0-32.0) Mean Corpuscular Hemoglobin Concent 34.2 g/dL (32.0-36.0) Red Cell Distribution Width 14.0 % (11.8-14.3) Platelet Count 147 10^3/uL (140-450) Mean Platelet Volume 7.6 fL (6.9-10.8) Neutrophils (%) (Auto) 53.9 % (37.0-80.0) Lymphocytes (%) (Auto) 29.0 % (10.0-50.0) Monocytes (%) (Auto) 7.8 % (0.0-12.0) Eosinophils (%) (Auto) 8.4 % (0.0-7.0) Basophils (%) (Auto) 0.9 % (0.0-2.0) Neutrophils # (Auto) 2.2 10 ^3/uL (1.6-8.6) Lymphocytes # (Auto) 1.2 10 ^3/uL (0.4-5.4) Monocytes # (Auto) 0.3 10 ^3/uL (0-1.3) Eosinophils # (Auto) 0.3 10 ^3/uL (0-0.8) Basophils # (Auto) 0 10 ^3/uL (0-0.2) Nucleated Red Blood Cells 0.1 % Prothrombin Time 10.8 sec (9.3-11.8) Prothrombin Time INR 1.02 (0.9-1.15) Activated Partial Thromboplast Time 33.6 SEC (24.5-34.5) Sodium Level 139 mmol/L (136-145) Potassium Level 3.8 mmol/L (3.5-5.1) Chloride Level 101 mmol/L (98-107) Carbon Dioxide Level 28 mmol/L (20-31) Anion Gap 10 (5-15) Blood Urea Nitrogen 18 mg/dL (9-23) Creatinine 1.03 mg/dL (0.700-1.30) Glomerular Filtration Rate Calc 72 mL/min (>90) BUN/Creatinine Ratio 17.5 (10.0-20.0) Serum Glucose 178 mg/dL (74-106) Calcium Level 8.9 mg/dL (8.7-10.4) Total Bilirubin 0.8 mg/dL (0.2-1.0) Aspartate Amino Transferase (AST) 29 U/L (13-40) Alanine Aminotransferase (ALT) 25 U/L (7-40) Alkaline Phosphatase 143 U/L (46-116) Total Protein 6.6 g/dL (5.7-8.2) Albumin 3.6 g/dL (3.2-4.8) Urine Opiates Screen Neg (NEGATIVE) Urine Fentanyl Screen Neg (NEGATIVE) Urine Barbiturates Screen Neg (NEGATIVE) Urine Phencyclidine Screen Neg (NEGATIVE) Urine Amphetamines Screen Neg (NEGATIVE) Urine Benzodiazepines Screen Neg (NEGATIVE) Urine Cocaine Screen Neg (NEGATIVE) Urine Cannabinoids Screen Neg (NEGATIVE) Influenza Type A Antigen Negative (Negative) Influenza Type B Antigen Negative (Negative) SARS-CoV-2 Antigen (Rapid) Negative (NEGATIVE) Test 10/02/25 18:27 10/02/25 15:51 10/02/25 13:57 10/02/25 12:53 Lactic Acid Level 1.0 mmol/L (0.4-2.0) Troponin I High Sensitivity 20 ng/L (</=54) Urine Color Yellow (Yellow) Urine Clarity Clear (Clear) Urine pH 6.0 (5.0-9.0) Urine Specific [place] 1.017 (1.001-1.035) Urine Protein 1+ (Negative) Urine Ketones Negative (Negative) Urine Blood Negative /uL (Negative) Urine Nitrite Negative (Negative) Urine Bilirubin Negative (Negative) Urine Urobilinogen 2 mg/dL (Negative) Urine Leukocyte Esterase Negative /uL (Negative) Urine RBC 3 /hpf (0 - 3) Urine Microscopic WBC 3 /HPF (0-3) Urine Squamous Epithelial Cells Few /hpf (<5) Urine Bacteria None seen /hpf (None Seen) Urine Glucose Trace mg/dL (Normal) Phosphorus Level 4.0 mg/dL (2.4-5.1) Magnesium Level 2.0 mg/dL (1.6-2.6) Direct Bilirubin 0.2 mg/dL (<0.3) B-Type Natriuretic Peptide 712.59 pg/mL (0-100) Triglycerides Level 97 mg/dL (< 150) Cholesterol Level 197 mg/dL (< 200) LDL Cholesterol 115 mg/dL (< 100) HDL Cholesterol 74 mg/dL (40-59) Vitamin B12 Level 455 pg/mL (211-911) Vitamin D 25-Hydroxy 31.9 ng/mL (30.0-100) Thyroid Stimulating Hormone (TSH) 2.71 uIU/mL (0.55-4.78) Test 10/02/25 12:51 Hemoglobin A1c 9.0 % A1C (<5.7) Other Laboratory Tests 10/04/25 09:19 Brief Hx & Hospital Course: 84-year-old male with a known history of CAD status post three-vessel CABG currently not on any heart medications presented to the hospital with the increasing shortness a breath and orthopnea found to have acute on chronic congestive heart failure exacerbation with a systolic dysfunction. Patient was managed with the IV diuretics and resume home medications. Patient is noncompliant with the medication all the prescription has been sent. Patient's hemoglobin A1c is 9.0. Patient will be sent on insulin as well. Compliance teaching has been given. Patient is being discharged under stable condition. Condition at Discharge: Stable Final Diagnosis/Problems List Acute hypoxic respiratory failure secondary to acute CHF exacerbation, currently on room air 2. Acute CHF exacerbation with a underlying chronic congestive heart failure with the EF of 15%, currently compensated 3. Cardiomyopathy in with a global hypokinesia with EF of 15% 4. Noncompliance 5. CAD status post three-vessel CABG 6. Insulin-dependent diabetes mellitus type 2 Discharge Disposition: Home SNF Discharge Will this Physician continue t: No Discharge Instruct/Medications Diet: Cardiac 2g Na,low cholest Activity: No Restrictions, As Tolerated Follow Up/Referral: Please follow up with the PCP and Cardiology in 1-2 weeks Medications: Resume home medication, prescription as prescribed. New Medications: Blood Glucose Monitoring Suppl (D-Care Glucometer Kit/Glu W/Device) 1 Kit Kit KIT XX, #1 Insulin Syringe/Needle U-100 (Advocate Insulin Syringe/) 0.5 Mg/31 G Mis MG XX, #30 Lancets (Freestyle Lancets) Lancets Mis BOX XX, #1 Apixaban Base (Eliquis) 5 Mg Tab 5 MG PO BID, #120 TAB Aspirin (Aspir-Low) 81 Mg Tab 81 MG PO DAILY, #90 TAB Atorvastatin Calcium (Atorvastatin Calcium) 20 Mg Tab 40 MG PO HS, #60 TAB Empagliflozin (Jardiance) 10 Mg Tab 10 MG PO DAILY, #60 TAB Isosorbide Mononitrate (Isosorbide Mononitrate ER) 60 Mg Tab 30 MG PO DAILY, #30 TAB Sacubitril-Valsartan (Entresto 24-26 mg) 1 Tab Tab 1 TAB PO BID, #120 TAB Spironolactone (Aldactone) 25 Mg Tab 25 MG PO DAILY, #60 TAB Continued Medications: Insulin Glargine (Lantus) 100 Unit/Ml Inj 25 UNIT SC ACHS, #30 INJ (This prescription has been renewed) Scheduled Amlodipine Besylate (Amlodipine Besylate), 5 MG PO DAILY, (Reported) Apixaban Base (Eliquis), 5 MG PO BID Aspirin (Aspir-Low), 81 MG PO DAILY, (Reported) Aspirin (Aspir-Low), 81 MG PO DAILY Atorvastatin Calcium (Atorvastatin Calcium), 1 TAB PO DAILY, (Reported) Atorvastatin Calcium (Atorvastatin Calcium), 40 MG PO HS Empagliflozin (Jardiance), 10 MG PO DAILY Insulin Glargine (Lantus), 25 UNIT SC ACHS Isosorbide Mononitrate (Isosorbide Mononitrate ER), 30 MG PO DAILY, (Reported) Isosorbide Mononitrate (Isosorbide Mononitrate ER), 30 MG PO DAILY Sacubitril-Valsartan (Entresto 24-26 mg), 1 TAB PO BID, (Reported) Sacubitril-Valsartan (Entresto 24-26 mg), 1 TAB PO BID Spironolactone (Spironolactone), 1 TAB PO DAILY, (Reported) Spironolactone (Aldactone), 25 MG PO DAILY Durable Medical Equipment Blood Glucose Monitoring Suppl (D-Care Glucometer Kit/Glu W/Device), KIT XX, (DME) Insulin Syringe/Needle U-100 ([employer]ocate Insulin Syringe/), MG XX, (DME) Lancets (Freestyle Lancets), BOX XX, (DME) Discharge Statement: "Patient was advised to return to the ER or call 911 if any headaches, dizziness, shortness of breath, chest pain, abdominal pain, bleeding, fevers, or worsening of medical condition. Patient was counseled about treatment plan, medications, possible side effects, patientverbalized understanding. All questions were answered to the best of my ability. This discharge took greater then 30 minutes in planning, reviewing documentation, counseling the patient, and discussing with other team members." ASSESSMENT ASSESSMENT Assessment 1.Acute hyp Questionable atypical pneumonia 3. BP 4.Coronary artery disease status post CABG in 02/2024 5.Hypertension Dyslipidemia Diabetes insulin requiring, uncontrolled (hemoglobin A1c) History of rib fractures Nondenominational-refuses blood product administration Noncompliance Insulin-dependent diabetes mellitus type 2 Date of Service: Oct 04, 2025 Billing Provider: MELONIE YARBROUGH MD Common Visit Codes: 30198-GUG/OBS DISCH DAY >30min MELONIE YARBROUGH MD Oct 04, 2025 16:03
[2025-10-04 16:19] VITALS: BP 131/72; PULSE 82; TEMP 98.6; O2SAT 96
== END 2025-10-04 17:50 | disposition home or self-care (01) | DRG 291 ==
LOC: ER 11:47 → OVERFLOW 17:16 → TELE-CENTR 17:21
PROVIDERS: ADMIT Internal Medicine; ATTEND Internal Medicine
DX: I11.0 Hypertensive heart disease with heart failure (principal); I50.43 Acute on chronic combined systolic (congestive) and diastolic (congestive) heart failure; J96.01 Acute respiratory failure with hypoxia; Z95.1 Presence of aortocoronary bypass graft; I16.0 Hypertensive urgency; E11.9 Type 2 diabetes mellitus without complications; I82.513 Chronic embolism and thrombosis of femoral vein, bilateral; Z20.822 Contact with and (suspected) exposure to COVID-19; I42.9 Cardiomyopathy, unspecified; I25.10 Atherosclerotic heart disease of native coronary artery without angina pectoris; E78.5 Hyperlipidemia, unspecified; N40.0 Benign prostatic hyperplasia without lower urinary tract symptoms; Z91.148 Patient's other noncompliance with medication regimen for other reason; Z79.4 Long term (current) use of insulin
CPT/HCPCS: 36415; 70450; 71045; 71275; 74176; 76775; 80048; 80053; 80061; 80076; 80307; 81001; 82306; 82607; 82962; 83036; 83605; 83735; 83880; 84100; 84443; 84484; 85025; 85610; 85730; 87086; 87426; 87804; 93005; 93306; 93970; 94640; 96374; 99291; 99292; G0378; J1815